=== PATIENT | male | born 1980 | race African-American/Black ===

== ENCOUNTER 2022-07-31 00:56 | Inpatient (IN) | payer BC ==
--- OUTSIDE RECORDS SUMMARY | 2022-07-31 00:58 | XMS REPORT | Continuity of Care Document ---
:1980 Author Organization [facility] t Address [address] [place] [address] Care Team Providers Name Role Phone Hu Gee Attending Clinician Provider, [facility] Attending Clinician Unavailable HU HERNÁNDEZ Attending Clinician Unavailable Doctor Unassigned, [place] Attending Clinician Unavailable Payers Payer Name Policy Type Policy Number Effective Date Expiration Date S ource Problems Condition Condition Condition Status Onset Resolution Last Treating Co mments Source Name Details Category Date Date Treatment Clinician Date No known No known Disease Unive rs active active ity of problems problems [facility] Allergies, Adverse Reactions, Alerts Allergy Allergy Status Severity Reaction(s) Onset Inactive Treating Comm ents Source Name Type Date Date Clinician Penicill Drug Active Hives Univers in Allergy 3- ity of 00:00: [address] PENICILL DRUG Active Hives Univers IN INGREDI 3- ity of 00:00: [address] NO KNOWN Drug Active Univers ALLERGIE Class ity of S [facility] Social History Social Habit Start Date Stop Date Quantity Comments Source History of Cigarette Smoker Universi ty of tobacco use [facility] Exposure to Not sure University of SARS-CoV-2 [facility] (event) [place] Tobacco use and 2020-10-08 2020-10-08 Never used Universit y of exposure 00:00:00 00:00:00 [facility] Sex Assigned At [birth year] Universit y of 00:00:00 00:00:00 [facility] Smoking Status Start Date Stop Date Source Unknown if ever smoked [facility] y [facility] Current every day smoker 2020-10-08 00:00:00 Uni versity of [facility] Medications Ordered Filled Start Stop Current Ordering Indication Dosage Frequency Signature Comments Components Source Medication Medication Date Date Medication? Clinician (SIG) Name Name cyclobenzap Yes [id number] 10mg Take 1 Univers rine 10 mg 3-27 tablet by ity of tablet 00:00: mouth 3 (three) Medical times Branch daily as needed for Muscle Spasms. naproxen 0 Yes [id number] 500mg Take 1 Un claudy 500 mg 3-27 tablet by ity of tablet 00:00: mouth 2 (two) Medical times Branch daily with meals. Diclofenac 0 Yes [id number] 2 grams Univers Sodium 1 % 3-27 twice ity of gel 00:00: daily as 00 needed to Medical neck for Branch pain. cyclobenzap Yes [id number] 10mg Take 1 Univers rine 10 mg 3-27 tablet by ity of tablet 00:00: mouth 3 (three) Medical times Branch daily as needed for Muscle Spasms. naproxen 0 Yes [id number] 500mg Take 1 Un claudy 500 mg 3-27 tablet by ity of tablet 00:00: mouth 2 (two) Medical times Branch daily with meals. Diclofenac 0 Yes [id number] 2 grams Univers Sodium 1 % 3-27 twice ity of gel 00:00: daily as 00 needed to Medical neck for Branch pain. cyclobenzap Yes [id number] 10mg Take 1 Univers rine 10 mg 3-27 tablet by ity of tablet 00:00: mouth 3 (three) Medical times Branch daily as needed for Muscle Spasms. naproxen 0 Yes [id number] 500mg Take 1 Un claudy 500 mg 3-27 tablet by ity of tablet 00:00: mouth 2 (two) Medical times Branch daily with meals. Diclofenac 0 Yes [id number] 2 grams Univers Sodium 1 % 3-27 twice ity of gel 00:00: daily as 00 needed to Medical neck for Branch pain. Vital Signs Vital Name Observation Time Observation Value Comments Source Systolic blood 2020-10-08 17:45:00 132 mm[Hg] Univer sity of pressure [facility] Diastolic blood 2020-10-08 17:45:00 89 mm[Hg] Unive rsity of [facility] Heart rate 2020-10-08 17:45:00 105 /min [facility] Body temperature 2020-10-08 17:45:00 37.06 Cami [facility] Respiratory rate 2020-10-08 17:45:00 18 /min [facility] Body height 2020-10-08 17:45:00 180.3 cm [facility] Body weight 2020-10-08 17:45:00 65.772 kg [facility] BMI 2020-10-08 17:45:00 20.22 kg/m2 [facility] Oxygen saturation in 2020-10-08 17:45:00 99 /min [facility] Arterial blood by [facility] Pulse oximetry [place] Procedures Procedure Date / Time Performed Performing Clinician [facility] HOSPITAL ADMISSION 2020-10-08 05:01:00 Doctor Elba, Noris Uni versity of [facility] Encounters Start End Encounter Admission Attending Care Care Encounter Source Date/Time Date/Time Type Type Clinicians Facility Department ID 2020-10-10 2020-10-10 Fernando Hernández [facility] [id number] Univers 00:00:00 00:00:00 [facility] [id number] it y of Surgical [id number] Gaetano as Specialti [id number] Wa dicpr es [address] [place] 2020-10-08 2020-10-08 Urgent Provider, [facility] Urgent Care [facility] [id number] Univers 12:41:48 13:31:59 Care [facility] [id number] ity [facility] [id number] Gaetano as Professio [phone] Wa dical nal [address] 2020-10-08 2020-10-08 Outpatient R [facility] [id number] Univers 12:40:00 12:40:00 HU ity [facility] 2020-10-08 2020-10-08 Orders Doctor TEIXEIRA [id number] Univers 00:00:00 00:00:00 Only Unassigned, ADRYAN [id number] ity of [place] [facility] [id number] Gaetano as [phone] [facility] 009 Branch 2020-10-08 2020-10-08 Letter Doctor LLUVIA [id number] Univers 00:00:00 00:00:00 (Out) Unassigned, ADRYAN [id number] ity of [place] [facility] [id number] Gaetano as [phone] [facility] 044 Branch Results This patient has no known results.
[2022-07-31] MEDS ORDERED: TDAP (DIPHTH,PERTUSS(ACELL),TET VAC) 0.5 ML VIAL IMVAC ONE (01:16)
[2022-07-31] MEDS ORDERED: CLINDAMYCIN 600MG/D5W 0 ML IV ONE (01:49)
[2022-07-31] MEDS ORDERED: MORPHINE 2 MG/ML SYR ONE ×2 (01:49→02:48)
[2022-07-31] MEDS ORDERED: CLINDAMYCIN 900MG/D5W 900 MG/50 ML IVPB IV ONE (01:50)
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
[2022-07-31 02:13] LABS: Absolute Lymphocytes (CBC) 1.4 K/uL (0.7-4.9); Hematocrit 42.5 % (39.6-49.0); Lymphocytes % 22.1 % (15.3-44.8); MCV 97.1 fL (80-100); MPV 7.7 fL (7.6-11.3); RBC Red Blood Cell Count 4.37 M/uL (4.33-5.43)
[2022-07-31] MEDS ORDERED: CIPROFLOXACIN 400mg IV 400 MG/200 ML BAG IV ONE (02:24)
[2022-07-31 02:25] LABS: Magnesium 1.9 mg/dL (1.6-2.4); Potassium 3.4 mmol/L (3.5-5.1)
[2022-07-31 02:32] LABS: SARS-CoV-2 Antigen Rapid Res Negative (Negative)
[2022-07-31] MEDS ORDERED: POTASSIUM 25 MEQ EFFERV TAB ONE (02:44)
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
[2022-07-31 03:23] VITALS: BMI 21.6
[2022-07-31] MEDS: Ringers Lactate 1,000 ML IV SCH ×2 (06:10→16:00)
[2022-07-31] MEDS: MORPHINE 2 MG/ML SYR IV PRN ×2 (06:14→10:26)
--- NOTE | 2022-07-31 07:35 | EKG ---
Test Date: 2022-07-31 Test Time: 01:45:41 Oil Expert: MANGO MEASUREMENT RESULTS: Intervals: Rate: 92 WY: 142 QRSD: 68 QT: 328 QTc: 405 Hope: P: 77 WY: 142 QRS: 78 T: 51 INTERPRETIVE STATEMENTS: Normal sinus rhythm ST elevation, consider early repolarization, pericarditis, or injury Abnormal ECG Compared to ECG 09/10/2016 21:05:45 No significant changes Electronically Signed On 07-31-22 07:34:49 RELIEF MASTER by Curry Chamorro
[2022-07-31] MEDS: CIPROFLOXACIN 400mg IV 400 MG/200 ML BAG IV SCH ×2 (07:55→20:32)
[2022-07-31] MEDS ORDERED: INFLUENZA VACCINE (for 6+ mo) 0.5 ML DOSE IMVAC ONE (08:00)
[2022-07-31] MEDS ORDERED: CLINDAMYCIN INJ 600 MG in NA CHLORIDE 0.9% 50 ML IV SCH (09:00)
[2022-07-31] MEDS: CLINDAMYCIN 600MG/D5W 50 ML IV SCH ×2 (09:40→17:50)
--- NOTE | 2022-07-31 14:03 | RAD REPORT ---
EXAM DESCRIPTION: RAD - Hand Right 3 View - 07/31/2022 1:32 am CLINICAL HISTORY: 42 years, Male, PAIN COMPARISON: None FINDINGS: 3 X-ray views of the right and left hand (Frontal, lateral and oblique views) were perform ed. No acute bony injuries were demonstrated. No gross articular or soft tissue abnormality is identifi ed. There are no gross intraosseous lesions. No periosteal reaction were seen. Carpal bones dem onstrate normal alignment. Scaphoid bone demonstrate to be within normal limits. IMPRESSION: No acute bony injuries were demonstrated. Electronically signed by: Nash Francisco MD 07/31/2022 2:12 AM DECAL CUTTER Due to temporary technical issues with the PACS/Fluency reporting system, reports are being signed by the in house radiologists without review as a courtesy to insure prompt reporting. The interpreting radiologist is fully responsible for the content of the report.
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
--- NOTE | 2022-07-31 14:08 | RAD REPORT ---
EXAM DESCRIPTION: RAD - Chest Single View - 07/31/2022 2:28 am CLINICAL HISTORY: 42 years Male pre-op COMPARISON: None FINDINGS: Lung volumes adequate. Cardiac silhouette is normal. No pneumothorax. No large pleural effusion. No focal consolidation. No acute bony finding. IMPRESSION: No acute cardiopulmonary abnormality. Electronically signed by: Guanako Jean Baptiste MD 07/31/2022 2:40 AM BLOCKING MACHINE OPERATOR SECOND Due to temporary technical issues with the PACS/Fluency reporting system, reports are being signed by the in house radiologists without review as a courtesy to insure prompt reporting. The interpreting radiologist is fully responsible for the content of the report.
[2022-07-31] MEDS ORDERED: propofoL 200 MG/20 ML VIAL IV ONE (14:18)
[2022-07-31] MEDS ORDERED: LIDOCAINE 2% MPF 5 ML VIAL ONE (14:18)
[2022-07-31] MEDS ORDERED: MIDAZOLAM HCL 2 MG/2 ML INJ ONE (14:18)
[2022-07-31] MEDS ORDERED: FENTANYL CITR 100 MCG/2 ML ONE (14:18)
[2022-07-31] MEDS: MORPHINE 4 MG/ML SYR IV PRN (14:40)
[2022-07-31] MEDS: Ringers Lactate 1,000 ML IV ONE ×2 (17:12→18:00)
[2022-07-31] MEDS ORDERED: KETOROLAC 30 MG/ML INJ ONE (17:49)
[2022-07-31] MEDS ORDERED: ONDANSETRON 4 MG/2 ML VIAL ONE (17:50)
[2022-07-31] MEDS ORDERED: dexAMETHasone 10 MG/ML VIAL ONE (17:50)
[2022-07-31] MEDS: SILVER SULFADIAZINE 1% 25 GM TOP ONE ×2 (18:03→18:08)
[2022-07-31] MEDS: CODEINE 30MG/APAP 300MG TAB PO PRN (20:34)
[2022-08-01] MEDS: CLINDAMYCIN 600MG/D5W 50 ML IV SCH ×3 (00:02→16:27)
[2022-08-01] MEDS: CODEINE 30MG/APAP 300MG TAB PO PRN ×3 (00:25→20:51)
[2022-08-01] MEDS: Ringers Lactate 1,000 ML IV SCH ×4 (02:00→22:00)
[2022-08-01 05:16] LABS: Absolute Lymphocytes (CBC) 0.6 K/uL (0.7-4.9); Hematocrit 42.4 % (39.6-49.0); MCV 96.8 fL (80-100); MPV 7.9 fL (7.6-11.3); RBC Red Blood Cell Count 4.38 M/uL (4.33-5.43)
[2022-08-01 05:29] LABS: Potassium 4.7 mmol/L (3.5-5.1)
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
--- NOTE | 2022-08-01 08:06 | OP ---
Surgeon: Sudeep Dorsey MD Preoperative Diagnosis: Open wound of the left hand. Postoperative Diagnosis: Open wound of the left hand with laceration of the extensor tendon of little finger. Procedure Performed: Debridement of skin, subcu tissue, and tendon. Anesthesia: General. Description Of Procedure: After satisfactory induction of general anesthesia, the left hand was prepped with Betadine scrub and paint. Dry sterile drapes were applied in the usual manner. The arm was elevated and exsanguinated with Esmarch. Tourniquet was inflated to 250 mmHg and placed on the Roto Lock table. Skin was debrided with a scalpel. The extensor tendon was identified proximately, distally, and retracted. It was grasped proximally and advanced distally and cut off down to bone. Cultures were taken. Wound was jet lavaged, irrigated with 3 L of dilute Betadine solution. Tourniquet was released. Electrocautery was used for hemostasis. Wound was packed with Silvadene cream, fluffs, and Kerlix. The patient tolerated procedure well and returned to recovery. KAVEH/TATIANA Voice ID: [id number] Report ID: [id number] YESIKA
[2022-08-01] MEDS: CIPROFLOXACIN 400mg IV 400 MG/200 ML BAG IV SCH ×2 (08:35→20:50)
[2022-08-01] MEDS: SILVER SULFADIAZINE 1% 50 GM TOP SCH ×2 (08:35→20:52)
[2022-08-01] MEDS ORDERED: SILVER SULFADIAZINE 1% 25 GM TOP SCH (09:00)
[2022-08-01] MEDS: MORPHINE 4 MG/ML SYR IV PRN ×2 (11:35→23:32)
--- NOTE | 2022-08-01 21:22 | P.PN ---
Date of Service: 08/01/22 Subjective: ROS: A complete review of systems was performed and is negative except as mentioned above Physical Exam: Gen: NAD, AOx3 HEENT: normal conjunctiva, sclera anicteric CV: regular rate & rhythm, no edema Pulm: non-labored respirations, clear bilaterally Skin: left hand, dressing in place, pain with movement of hand/fingers, no significant edema Neuro: normal speech, normal affect, moves all extremities vitals reviewed Problem List Laceration dorsum of left hand with tendon involvement continue empiric antibiotics, pcn allergy culture pending Willian consulted, s/p washout and packign 07/31, tentative plan to return to OR 08/02 pain medication as tolerated otherwise doing well Code: full Dispo: home, ~24-48hrs possibly tomorrow after OR
[2022-08-02] MEDS: CLINDAMYCIN 600MG/D5W 50 ML IV SCH ×2 (00:17→08:24)
[2022-08-02 03:54] LABS: Potassium 3.7 mmol/L (3.5-5.1)
[2022-08-02] MEDS: Ringers Lactate 1,000 ML IV SCH ×2 (06:13→08:00)
[2022-08-02] MEDS: SILVER SULFADIAZINE 1% 50 GM TOP SCH (08:29)
[2022-08-02] MEDS ORDERED: FENTANYL CITR 100 MCG/2 ML ONE (08:40)
[2022-08-02] MEDS ORDERED: propofoL 200 MG/20 ML VIAL IV ONE (08:40)
[2022-08-02] MEDS ORDERED: MIDAZOLAM HCL 2 MG/2 ML INJ ONE (08:40)
[2022-08-02] MEDS ORDERED: LIDOCAINE 2% MPF 5 ML VIAL ONE (08:41)
[2022-08-02] MEDS: CIPROFLOXACIN 400mg IV 400 MG/200 ML BAG IV SCH (09:00)
[2022-08-02] MEDS ORDERED: ONDANSETRON 4 MG/2 ML VIAL ONE (09:24)
[2022-08-02] MEDS ORDERED: KETOROLAC 30 MG/ML INJ ONE (09:24)
[2022-08-02] MEDS: HYDROMORPHONE HCL 2 MG/ML inj ONE ×3 (10:06→10:28)
[2022-08-02 10:56] VITALS: O2SAT 98
[2022-08-02 12:17] VITALS: BP 115/77; TEMP 97.5
--- NOTE | 2022-08-02 13:03 | OP ---
Surgeon: Sudeep Dorsey MD Preoperative Diagnosis: Open wound of the left hand with laceration of extensor communis to the litzy le finger. Postoperative Diagnosis: Open wound of the left hand with laceration of extensor communis to the lit tle finger. Procedure Performed: Debridement of skin and subcutaneous tissue, tendon, tendon repair, simple clos ure and splint. Anesthesia: General. Description Of Procedure: After satisfactory induction of general anesthesia, left arm was prepped w ith Betadine scrub, Betadine paint, and dry sterile drapes applied in usual manner. The arm was elev ated, exsanguinated with an Esmarch. Tourniquet was inflated to 250 mmHg. Hand placed on the Roto L ock table. Proximal extension was made. The wound was debrided and jet lavage irrigated with 3 L of dilute Betadine solution. The tendon was found proximally. 4-0 Prolene advanced distall y and sewn to the distal end with 4-0 Prolene. After this was done, the tourniquet was released. El ectrocautery was used for hemostasis. Wound was closed with 4-0 Prolene in vertical mattress half bu ried mattress of simple sutures. Dressed with Xeroform, 2-inch Reynaldo, Kerlix, and a splint holding t he wrist, 10 degrees dorsiflex, MCP, PIP, DIP 0. Patient tolerated procedure well and returned to covery. KAVEH/TATIANA Voice ID: [id number] Report ID: [id number]
[2022-08-02] MEDS ORDERED: CIPROFLOXACIN HCL 500 MG TAB PO SCH (21:00)
== END 2022-08-02 14:00 | disposition home or self-care (01) | DRG 514 ==
LOC: ER 00:56 → ERHOLD 01:50 → 2ND 03:05 → OBSVTOIN 08-01 09:14
PROVIDERS: ADMIT Hospitalist; ATTEND Hospitalist
PROC: 0LB80ZZ Excision of Left Hand Tendon, Open Approach (ICD-10-PCS; principal; 2022-07-31 14:00)
DX: S66.327A Laceration of extensor muscle, fascia and tendon of left little finger at wrist and hand level, initial encounter (principal); F17.200 Nicotine dependence, unspecified, uncomplicated; Z88.0 Allergy status to penicillin; Z20.822 Contact with and (suspected) exposure to COVID-19; Y04.1XXA Assault by human bite, initial encounter; Y92.099 Unspecified place in other non-institutional residence as the place of occurrence of the external cause
CPT/HCPCS: 36415; 71045; 80048; 83735; 85025; 87070; 87205; 87811; 88304; 90471; 93005; 96365; 96367; 96375; 99285; G0378; J0744; J1100; J1170; J2001; J2250; J2270; J2405; J2704; J3010; J7120